=== PATIENT | male | born 1970 | race Caucasian/White ===

== ENCOUNTER 2021-10-16 12:10 | Emergency (ER) | payer BC ==
[2021-10-16] MEDS ORDERED: Boostrix 0.5 ML (Tdap) VIAL ONE (12:40)
[2021-10-16] MEDS ORDERED: Lidocaine 1% w/Epinephrine 1:100K 20 ML VIAL ONE (12:40)
[2021-10-16] MEDS ORDERED: Bacitracin 1 PK ONE (12:40)
[2021-10-16] MEDS ORDERED: HYDROcodone/Acetaminophen 5/325 mg Tablet ONE (13:14)
== END 2021-10-16 13:35 | disposition home or self-care (01) ==
LOC: BURERS 12:10
DX: S01.01XA Laceration without foreign body of scalp, initial encounter (principal); S09.90XA Unspecified injury of head, initial encounter; I10 Essential (primary) hypertension; W22.8XXA Striking against or struck by other objects, initial encounter; Z79.899 Other long term (current) drug therapy; Z23 Encounter for immunization
CPT/HCPCS: 12002; 70450; 90471; 90715